=== PATIENT | male | born 1965 | race Hispanic/Latino ===

== ENCOUNTER 2023-09-08 11:40 | Emergency (ER) | payer OTHER ==
[~2023-09-08] VITALS: Ht 170.2 cm; Wt 81.6 kg
[2023-09-08 12:55] LABS: BASOPHILS # (AUTO) 0.03 K/uL (0.00-0.20); BASOPHILS % (AUTO) 0.4 % (0.0-5.0); EOSINOPHILS # (AUTO) 0.04 K/uL (0.00-0.70); EOSINOPHILS % (AUTO) 0.5 % (0.0-8.0); HEMATOCRIT 45.1 % (42-54); IMMATURE GRANULOCYTE ABSOLUTE 0.04 K/uL (0-1); LYMPHOCYTES # (AUTO) 2.3 K/uL (1.0-4.8); LYMPHOCYTES % (AUTO) 27.9 % (21.0-51.0); MEAN CORPUSCULAR HEMOGLOBIN 29.7 pg (27.0-33.0); MEAN CORPUSCULAR HGB CONC 34.8 g/dL (32.0-36.0); MEAN CORPUSCULAR VOLUME 85.4 fL (79-99); MONOCYTES # (AUTO) 0.6 K/uL (0.1-1.0); MONOCYTES % (AUTO) 7.4 % (3.0-13.0); NEUTROPHILS # (AUTO) 5.1 K/uL (1.8-7.7); NEUTROPHILS % (AUTO) 63.3 % (40.0-77.0); PLATELET COUNT (AUTO) 212 K/uL (130-400); RED BLOOD CELL COUNT(AUTO) 5.28 MIL/uL (4.50-6.20); RED CELL DISTRIBUTION WIDTH 13.8 % (11.0-15.5); WHITE BLOOD COUNT (AUTO) 8.1 K/uL (4.8-10.8)
[2023-09-08 13:03] LABS: APPEARANCE,URINE CLOUDY (CLEAR); BILIRUBIN,URINE NEGATIVE (NEGATIVE); COLOR,URINE COLORLESS (YELLOW); GLUCOSE, URINE (UA) >=1000 mg/dL (NEGATIVE); KETONES,URINE NEGATIVE (NEGATIVE); LEUKOCYTE ESTERASE ,URINE 500 Leu/uL (NEGATIVE); NITRATE,URINE NEGATIVE (NEGATIVE); OCCULT BLOOD,URINE LARGE (NEGATIVE); PROTEIN,URINE 30 mg/dL (NEGATIVE); UROBILINOGEN,URINE 0.2 mg/dL (0.2-1.0)
[2023-09-08 13:05] LABS: ADD UA MICROSCOPIC YES
[2023-09-08 13:07] LABS: BACTERIA,URINE FEW /HPF (None Seen); OTHER CASTS, URINE 6 /LPF (None Seen); RBC,URINE TNTC /HPF (0-1); WBC CLUMP FEW /HPF (0-1); WBC,URINE TNTC /HPF (0-1); YEAST,URINE BUDDING MANY /HPF (None Seen); YEAST,URINE HYPHAE MOD /HPF (None Seen)
[2023-09-08 13:11] LABS: CREATININE 0.9 mg/dL (0.5-1.5); POTASSIUM 4.3 mmol/L (3.5-5.1)
[2023-09-08] MEDS: 0.9%NACL 1000ML 1,000 ML IV ONE ×2 (14:31)
[2023-09-08] MEDS: INSULIN HUMULIN R 100 UNIT/ML 3ML IV ONE (14:33)
[2023-09-08] MEDS: CEFTRIAXONE 1G VIAL IVPB ONE (15:20)
[2023-09-08] MEDS: FLUCONAZOLE 100 MG TAB ONE (15:20)
[2023-09-08] MEDS: FLUCONAZOLE 100 MG TAB PO SCH (15:20)
[2023-09-08 16:37] VITALS: BP 140/78; PULSE 86; RESP 18; O2SAT 97
[2023-09-08] MEDS ORDERED: FLUC200T PO (17:03)
[2023-09-08] MEDS ORDERED: MACR100 PO (17:03)
== END 2023-09-08 17:28 | disposition home or self-care (01) ==
LOC: EDH 11:40
DX: E11.65 Type 2 diabetes mellitus with hyperglycemia (principal); I10 Essential (primary) hypertension; N39.0 Urinary tract infection, site not specified; Z96.0 Presence of urogenital implants
CPT/HCPCS: 99284; 96374; 96361; 96375; 80048; 85025; 87088; 82948; 83605; 81001; 36415; J1815; J7030; J0696

== ENCOUNTER 2023-09-11 20:14 | Emergency (ER) | payer OTHER ==
[~2023-09-11] VITALS: Ht 170.2 cm; Wt 85.7 kg
[~2023-09-11 20:14] MED LIST: FLUC200T PO; MACR100 PO
[2023-09-11] MEDS: LACTATED RINGERS 1000ML 1,000 ML IV ONE (22:09)
[2023-09-11] MEDS: INSULIN LISPRO 100 UNIT/ML 3ML SQ ONE ×2 (22:11→23:53)
[2023-09-11 22:23] LABS: BASOPHILS # (AUTO) 0.02 K/uL (0.00-0.20); BASOPHILS % (AUTO) 0.2 % (0.0-5.0); EOSINOPHILS # (AUTO) 0.06 K/uL (0.00-0.70); EOSINOPHILS % (AUTO) 0.7 % (0.0-8.0); HEMATOCRIT 47.2 % (42-54); IMMATURE GRANULOCYTE ABSOLUTE 0.04 K/uL (0-1); LYMPHOCYTES # (AUTO) 1.9 K/uL (1.0-4.8); LYMPHOCYTES % (AUTO) 21.6 % (21.0-51.0); MEAN CORPUSCULAR HEMOGLOBIN 29.4 pg (27.0-33.0); MEAN CORPUSCULAR HGB CONC 34.5 g/dL (32.0-36.0); MONOCYTES # (AUTO) 0.7 K/uL (0.1-1.0); MONOCYTES % (AUTO) 7.7 % (3.0-13.0); NEUTROPHILS % (AUTO) 69.3 % (40.0-77.0); PLATELET COUNT (AUTO) 186 K/uL (130-400); RED BLOOD CELL COUNT(AUTO) 5.55 MIL/uL (4.50-6.20); RED CELL DISTRIBUTION WIDTH 13.9 % (11.0-15.5); WHITE BLOOD COUNT (AUTO) 8.7 K/uL (4.8-10.8)
[2023-09-11 22:44] LABS: ALBUMIN 3.6 g/dL (3.5-5.0); BILIRUBIN,TOTAL 0.9 mg/dL (0.2-1.0); CREATININE 1.2 mg/dL (0.5-1.5); POTASSIUM 4.2 mmol/L (3.5-5.1); TOTAL PROTEIN, SERUM 7.7 g/dL (6.0-8.3)
[2023-09-11 23:01] LABS: APPEARANCE,URINE CLOUDY (CLEAR); BILIRUBIN,URINE NEGATIVE (NEGATIVE); COLOR,URINE LIGHT-YELLOW (YELLOW); GLUCOSE, URINE (UA) >=1000 mg/dL (NEGATIVE); KETONES,URINE NEGATIVE (NEGATIVE); LEUKOCYTE ESTERASE ,URINE 500 Leu/uL (NEGATIVE); NITRATE,URINE NEGATIVE (NEGATIVE); OCCULT BLOOD,URINE LARGE (NEGATIVE); PH,URINE 5.5 (5.0-8.0); PROTEIN,URINE 20 mg/dL (NEGATIVE); UROBILINOGEN,URINE 0.2 mg/dL (0.2-1.0)
[2023-09-11 23:03] LABS: ADD UA MICROSCOPIC YES
[2023-09-11 23:04] LABS: MUCUS,URINE RARE LPF (None Seen); RBC,URINE TNTC /HPF (0-1); SQUAMOUS EPITHELIAL CELL,UR RARE /HPF (0-2); WBC CLUMP FEW /HPF (0-1); YEAST,URINE BUDDING MANY /HPF (None Seen); YEAST,URINE HYPHAE RARE /HPF (None Seen)
[2023-09-11 23:06] LABS: WBC,URINE >100 /HPF (0-1)
[2023-09-12] MEDS ORDERED: INSU3INS5 SQ (00:50)
[2023-09-12] MEDS: INSULIN LISPRO 100 UNIT/ML 3ML SQ ONE (01:02)
[2023-09-12 01:08] VITALS: BP 152/84; PULSE 82; RESP 17; O2SAT 99
== END 2023-09-12 01:18 ==
LOC: EDH 20:14 → EEVIPCON 20:14 → EDH 09-12 01:18
DX: R33.9 Retention of urine, unspecified (principal); E11.10 Type 2 diabetes mellitus with ketoacidosis without coma; I10 Essential (primary) hypertension; Z79.899 Other long term (current) drug therapy; Z98.890 Other specified postprocedural states; Z44.8 Encounter for fitting and adjustment of other external prosthetic devices
CPT/HCPCS: 36415; 80053; 81001; 82550; 82948; 83690; 85025; 96360; 96361; 96372

== ENCOUNTER → 2024-04-04 11:07 | Emergency (ER) | payer SELFPAY ==
[~2024-04-04 11:07] MED LIST changes: +INSU3INS5 SQ
== END | disposition left against medical advice (07) ==
LOC: EDH 11:07
DX: M54.2 Cervicalgia (principal); Z53.21 Procedure and treatment not carried out due to patient leaving prior to being seen by health care provider; E11.9 Type 2 diabetes mellitus without complications; I10 Essential (primary) hypertension; Z79.4 Long term (current) use of insulin; Z79.899 Other long term (current) drug therapy